=== PATIENT | male | born 1945 | race African-American/Black ===

== ENCOUNTER 2016-07-06 06:24 | Emergency (ER) | payer MEDICARE, BC ==
[~2016-07-06] VITALS: Ht 180.3 cm; Wt 104.4 kg
[~2016-07-06 06:24] MED LIST: ACTOS45 MG OR; ALDACTONE25 MG PO; ASPIR-8181 MG OR; ASPIRIN LOW DOS81 M2 PO; BUSPIRONE30 MG OR; CADUET5 MG/40 MG PO; CIPROFLOXACN500 MG PO; CYMBALTA30 MG PO; DEXILANT60 MG PO; FISH OIL1000 MG PO; FLOMAX0.4 M1 PO; FLOMAX0.4 MG OR; FUROSEMIDE40 MG PO; GLIPIZIDE10 MG PO; GLUCOTROL XL10 MG PO; LANTUS100 MG/ML SC; LEVITRA20 MG OR; LEXAPRO10 MG OR; LORTAB 5/3255 MG PO; METAXALONE OR; NOVOLOG100 IU/1 M SC; PRECOSE PO; PRECOSE25 MG PO; RISPERDAL1 MG OR; RISPERIDONE1 MG PO; TUMS500 MG PO; ULTRAM50 MG OR; VITAMIN D1000 UNIT PO; XALATAN0.005 % OU; ZPAK PO
[2016-07-06] MEDS ORDERED: GLIPIZIDE ER5 MG PO (06:44)
[2016-07-06] MEDS ORDERED: FLOMAX0.4 M1 PO (06:44)
[2016-07-06] MEDS ORDERED: PRECOSE25 MG PO (06:45)
[2016-07-06] MEDS ORDERED: AMLODIPINE2.5 MG PO (06:48)
[2016-07-06] MEDS ORDERED: AMLODIPINE5 MG PO (06:49)
[2016-07-06 07:37] LABS: HEMATOCRIT 41.1 % (39.0-50.0); HEMOGLOBIN 13.5 g/dl (14.0-18.0); IMMATURE GRANULOCYTES 0.4 % (0.0-1.0); MEAN CELL VOLUME 86.5 fL CALC (80.0-100.0); MEAN CORPUSCULAR HGB 28.4 pG CALC (26.0-32.0); MEAN CORPUSCULAR HGB CONC 32.8 g/L CALC (32.0-36.0); NEUT# 3.46 thou/uL (1.82-7.42); RED BLOOD COUNT 4.75 mill/uL (4.70-6.10); RED CELL DISTRI WIDTH 14.2 % (11.5-15.5)
[2016-07-06 07:54] LABS: ALBUMIN 4.2 g/dL (3.2-5.0); ALKALINE PHOSPHATASE 71 u/l (38-126); ANION GAP 12 (6-22 (CALC)); BILIRUBIN, TOTAL 0.7 mg/dL (0.0-1.4); BUN 30 mg/dL (8-23); BUN/CREATININE RATIO 21 (12-20 (CALC)); CALCIUM 9.7 mg/dL (8.4-10.2); CARBON DIOXIDE 30 mmol/l (22-30); CHLORIDE 101 mmol/l (95-108); CREATININE 1.4 mg/dL (0.7-1.3); GFR 50 ML/MIN (>=60 (CALC)); GFR FOR AFR.AMER. 60 ML/MIN (>=60 (CALC)); GLUCOSE 96 mg/dL (82-115); POTASSIUM 4.6 mmol/l (3.5-5.1); SGOT/AST 48 u/l (19-48); SGPT/ALT 50 u/l (11-66); SODIUM 137 mmol/l (137-146); TOTAL PROTEIN 7.7 g/dL (6.3-8.2)
[2016-07-06 08:06] LABS: MYOGLOBIN 118 ng/mL (0 - 121)
[2016-07-06] MEDS ORDERED: FLEXERIL PO (08:24)
[2016-07-06] MEDS ORDERED: EC-NAPROSYN500 MG PO (08:24)
[2016-07-06 08:30] VITALS: BP 150/68
== END 2016-07-06 08:35 | disposition home or self-care (01) ==
LOC: ED 06:24
PROVIDERS: Emergency Medicine
DX: R07.89 Other chest pain (principal); I10 Essential (primary) hypertension; E11.9 Type 2 diabetes mellitus without complications; E78.5 Hyperlipidemia, unspecified

== ENCOUNTER 2016-12-17 08:13 | Emergency (ER) | payer MEDICARE, BC ==
[~2016-12-17] VITALS: Ht 180.3 cm; Wt 105.0 kg
[~2016-12-17 08:13] MED LIST changes: +AMLODIPINE2.5 MG PO; +AMLODIPINE5 MG PO; +EC-NAPROSYN500 MG PO; +FLEXERIL PO; +GLIPIZIDE ER5 MG PO
[2016-12-17] MEDS ORDERED: XALATAN 0.005%2.5 ML OU (08:31)
[2016-12-17] MEDS ORDERED: ALPHA LIPOIC A200 MG PO (08:34)
[2016-12-17] MEDS ORDERED: L-ARGININE500 M2 PO (08:34)
[2016-12-17] MEDS ORDERED: COQ-1030 M1 PO (08:35)
[2016-12-17] MEDS ORDERED: FLEXERIL5 MG PO (08:36)
[2016-12-17] MEDS ORDERED: TRAMADOL HCL50 MG PO (08:38)
[2016-12-17] MEDS ORDERED: DOXYCYC MONO100 M1 PO (08:44)
[2016-12-17 08:50] VITALS: BP 171/79
== END 2016-12-17 08:55 | disposition home or self-care (01) ==
LOC: ED 08:13
DX: E11.621 Type 2 diabetes mellitus with foot ulcer (principal); L97.519 Non-pressure chronic ulcer of other part of right foot with unspecified severity; I10 Essential (primary) hypertension; E78.5 Hyperlipidemia, unspecified

== ENCOUNTER 2017-01-29 12:06 | Emergency (ER) | payer MEDICARE, BC ==
[~2017-01-29] VITALS: Ht 180.3 cm; Wt 107.0 kg
[~2017-01-29 12:06] MED LIST changes: +ALPHA LIPOIC A200 MG PO; +COQ-1030 M1 PO; +DOXYCYC MONO100 M1 PO; +FLEXERIL5 MG PO; +L-ARGININE500 M2 PO; +TRAMADOL HCL50 MG PO; +XALATAN 0.005%2.5 ML OU
[2017-01-29 13:26] VITALS: BP 127/68
== END 2017-01-29 13:37 | disposition home or self-care (01) ==
LOC: ED 12:06
DX: S39.012A Strain of muscle, fascia and tendon of lower back, initial encounter (principal); I10 Essential (primary) hypertension; E11.9 Type 2 diabetes mellitus without complications; E78.5 Hyperlipidemia, unspecified; F41.9 Anxiety disorder, unspecified; X50.0XXA Overexertion from strenuous movement or load, initial encounter; Y93.89 Activity, other specified

== ENCOUNTER 2017-03-08 13:42 | Emergency (ER) | payer MEDICARE, BC | END 2017-03-08 13:55 | disposition left against medical advice (07) | LOC: ED 13:42 → LWOBS 13:55 | DX: Z91.19 Patient's noncompliance with other medical treatment and regimen (principal) ==

== ENCOUNTER 2017-04-28 15:44 | Emergency (ER) | payer MEDICARE, BC ==
[~2017-04-28] VITALS: Ht 180.3 cm; Wt 102.0 kg
[2017-04-28] MEDS ORDERED: AMLODIPINE10 MG PO (16:12)
[2017-04-28 17:45] LABS: INFLUENZA A NONE DETECTED (NONE DETECT); INFLUENZA B NONE DETECTED (NONE DETECT)
[2017-04-28 18:01] LABS: HEMOGLOBIN 12.8 g/dl (14.0-18.0); IMMATURE GRANULOCYTES 0.4 % (0.0-1.0); MEAN CELL VOLUME 87.5 fL CALC (80.0-100.0); NEUT# 5.49 thou/uL (1.82-7.42); RED BLOOD COUNT 4.57 mill/uL (4.70-6.10); RED CELL DISTRI WIDTH 14.5 % (11.5-15.5)
[2017-04-28 18:16] LABS: ALBUMIN 4.3 g/dL (3.2-5.0); ALKALINE PHOSPHATASE 98 u/l (38-126); ANION GAP 13 (6-22 (CALC)); BILIRUBIN, TOTAL 0.6 mg/dL (0.0-1.4); BUN 15 mg/dL (8-23); BUN/CREATININE RATIO 15 (12-20 (CALC)); CALCIUM 10.4 mg/dL (8.4-10.2); CARBON DIOXIDE 28 mmol/l (22-30); CHLORIDE 101 mmol/l (95-108); GFR > 60 ML/MIN (>=60 (CALC)); GFR FOR AFR.AMER. > 60 ML/MIN (>=60 (CALC)); GLUCOSE 175 mg/dL (82-115); POTASSIUM 4.8 mmol/l (3.5-5.1); SGOT/AST 37 u/l (19-48); SGPT/ALT 42 u/l (11-66); SODIUM 138 mmol/l (137-146); TOTAL PROTEIN 7.2 g/dL (6.3-8.2)
[2017-04-28] MEDS ORDERED: FLONASE AL50 MCG/ACT (18:24)
[2017-04-28] MEDS ORDERED: ZPAK PO (18:24)
[2017-04-28 18:27] VITALS: BP 138/70
== END 2017-04-28 18:30 | disposition home or self-care (01) ==
LOC: ED 15:44
PROVIDERS: Emergency Medicine
DX: J32.9 Chronic sinusitis, unspecified (principal); R09.81 Nasal congestion; I10 Essential (primary) hypertension; E11.9 Type 2 diabetes mellitus without complications

== ENCOUNTER 2018-04-12 20:16 | Emergency (ER) | payer MEDICARE, BC ==
[~2018-04-12] VITALS: Ht 180.3 cm; Wt 113.0 kg
[~2018-04-12 20:16] MED LIST changes: +AMLODIPINE10 MG PO; +FLONASE AL50 MCG/ACT
[2018-04-12] MEDS ORDERED: NOVOLOG MIX100 U/ML SC (21:04)
[2018-04-12 22:23] VITALS: BP 131/71
== END 2018-04-12 22:25 | disposition home or self-care (01) ==
LOC: ED 20:16
DX: Z03.89 Encounter for observation for other suspected diseases and conditions ruled out (principal); E11.9 Type 2 diabetes mellitus without complications; I10 Essential (primary) hypertension; Z79.4 Long term (current) use of insulin

== ENCOUNTER 2018-08-22 00:59 | Emergency (ER) | payer MEDICARE, BC ==
[~2018-08-22] VITALS: Ht 180.3 cm; Wt 116.0 kg
[~2018-08-22 00:59] MED LIST changes: +LIPITOR80 M1 PO; +LOSARTAN POT100 MG PO; +NOVOLOG MIX100 U/ML SC
[2018-08-22] MEDS ORDERED: FLEXERIL PO (02:06)
[2018-08-22 02:27] VITALS: BP 117/73
== END 2018-08-22 02:32 | disposition home or self-care (01) ==
LOC: ED 00:59
DX: S43.401A Unspecified sprain of right shoulder joint, initial encounter (principal); I10 Essential (primary) hypertension; E11.9 Type 2 diabetes mellitus without complications; X50.0XXA Overexertion from strenuous movement or load, initial encounter; Y93.89 Activity, other specified; Y92.009 Unspecified place in unspecified non-institutional (private) residence as the place of occurrence of the external cause

== ENCOUNTER 2019-02-17 10:27 | Emergency (ER) | payer MEDICARE, BC ==
[~2019-02-17] VITALS: Ht 180.3 cm; Wt 118.0 kg
[2019-02-17] MEDS ORDERED: ORPHENADRINE100 MG PO (11:58)
[2019-02-17 12:03] VITALS: BP 143/63
== END 2019-02-17 12:07 | disposition home or self-care (01) ==
LOC: ED 10:27
DX: S39.012A Strain of muscle, fascia and tendon of lower back, initial encounter (principal); X50.9XXA Other and unspecified overexertion or strenuous movements or postures, initial encounter; M54.5 Low back pain

== ENCOUNTER 2019-06-19 | Emergency (ER) | payer MEDICARE, BC ==
[~2019-06-19] MED LIST changes: +ORPHENADRINE100 MG PO
[2019-06-19] MEDS ORDERED: XALATAN 0.005%2.5 ML OP (19:15)
[2019-06-19] MEDS ORDERED: TIMOLOL OP (19:16)
[2019-06-19] MEDS ORDERED: BRIMONIDINE0.2 % OP (19:16)
[2019-06-19] MEDS ORDERED: METAMUCIL FIBE51.7 % (19:17)
[2019-06-19] MEDS ORDERED: CYMBALTA30 MG PO (19:17)
[2019-06-19] MEDS ORDERED: VITAMIN D31000 UNI1 PO (19:18)
[2019-06-19] MEDS ORDERED: HYDRALAZINE10 M2 PO (19:18)
[2019-06-19] MEDS ORDERED: LANTUS100 UNIT/M (19:19)
[2019-06-19] MEDS ORDERED: METOPROL TAR25 MG PO (19:19)
[2019-06-19 19:26] LABS: HEMATOCRIT 41.4 % (39.0-50.0); HEMOGLOBIN 12.8 g/dl (14.0-18.0); IMMATURE GRANULOCYTES 0.2 % (0.0-5.0); MEAN CELL VOLUME 89.4 fL CALC (80.0-100.0); MEAN CORPUSCULAR HGB 27.6 pG CALC (26.0-32.0); MEAN CORPUSCULAR HGB CONC 30.9 g/dL CAL (32.0-36.0); NEUT# 2.31 thou/uL (1.82-7.42); RED BLOOD COUNT 4.63 mill/uL (4.70-6.10); RED CELL DISTRI WIDTH 14.3 % (11.5-15.5)
[2019-06-19 19:46] LABS: ALBUMIN 4.2 g/dL (3.2-5.0); ALKALINE PHOSPHATASE 76 u/l (38-126); AMYLASE 150 u/l (30-110); BILIRUBIN, TOTAL 0.8 mg/dL (0.0-1.4); BUN 27 mg/dL (8-23); BUN/CREATININE RATIO 20 (12-20 (CALC)); CHLORIDE 101 mmol/l (95-108); CREATININE 1.4 mg/dL (0.7-1.3); GFR 50 ML/MIN (>=60 (CALC)); GFR FOR AFR.AMER. 60 ML/MIN (>=60 (CALC)); LIPASE 346 u/l (23-300); POTASSIUM 4.5 mmol/l (3.5-5.1); SGOT/AST 45 u/l (19-48); SODIUM 136 mmol/l (137-146); TOTAL PROTEIN 7.6 g/dL (6.3-8.2)
[2019-06-19 19:51] LABS: ANION GAP 9 (6-22 (CALC)); CARBON DIOXIDE 31 mmol/l (22-30)
[2019-06-19 20:28] LABS: URINE BILIRUBIN - DIPSTICK NEGATIVE (NEGATIVE); URINE BLOOD DIPSTICK NEGATIVE (NEGATIVE); URINE COLOR YELLOW; URINE GLUCOSE - DIPSTICK 100 mg/dL (NEGATIVE); URINE KETONE NEGATIVE (NEGATIVE); URINE LEUK ESTERASE NEGATIVE (NEGATIVE); URINE NITRITE - DIPSTICK NEGATIVE (Negative); URINE PH 6.5 (4.5-8.0); URINE PROTEIN - DIPSTICK TRACE mg/dL (NEG-TRACE); URINE UROBILINOGEN - DIPSTICK 0.2 E.U./dL (0.2)
[2019-06-19] MEDS ORDERED: ONDANSETRON4 MG PO (22:04)
[2019-06-19] MEDS ORDERED: PROTONIX40 M2 PO (22:04)
[2019-06-19] MEDS ORDERED: HYDROCO/APAP1 TA9 PO (22:04)
== END 2019-06-19 22:32 | disposition home or self-care (01) ==
DX: R10.13 Epigastric pain (principal); K80.20 Calculus of gallbladder without cholecystitis without obstruction; E11.9 Type 2 diabetes mellitus without complications; I10 Essential (primary) hypertension; Z79.4 Long term (current) use of insulin
CPT/HCPCS: Q9967; S0164

== ENCOUNTER 2019-09-18 18:48 | Emergency (ER) | payer MEDICARE, BC ==
[~2019-09-18] VITALS: Ht 180.3 cm; Wt 111.0 kg
[~2019-09-18 18:48] MED LIST changes: +BRIMONIDINE0.2 % OP; +HYDRALAZINE10 M2 PO; +HYDROCO/APAP1 TA9 PO; +LANTUS100 UNIT/M; +METAMUCIL FIBE51.7 %; +METOPROL TAR25 MG PO; +ONDANSETRON4 MG PO; +PROTONIX40 M2 PO; +TIMOLOL OP; +VITAMIN D31000 UNI1 PO; +XALATAN 0.005%2.5 ML OP
[2019-09-18] MEDS ORDERED: TRAMADOL HCL50 MG PO (21:11)
[2019-09-18] MEDS ORDERED: FLEXERIL5 MG PO (21:11)
[2019-09-18] MEDS ORDERED: VOLTAREN - GENE75 MG PO (21:11)
[2019-09-18 21:26] VITALS: BP 138/69
== END 2019-09-18 21:59 | disposition home or self-care (01) ==
LOC: ED 18:48
DX: M54.12 Radiculopathy, cervical region (principal); E11.9 Type 2 diabetes mellitus without complications; I10 Essential (primary) hypertension; Z79.4 Long term (current) use of insulin

== ENCOUNTER 2020-07-29 06:17 | Emergency (ER) | payer MEDICARE, BC ==
[~2020-07-29 06:17] MED LIST changes: -METAMUCIL FIBE51.7 %; +METAMUCIL FIBE51.7 % PO; +VOLTAREN - GENE75 MG PO
[2020-07-29] MEDS ORDERED: NORVASC5 M1 PO (06:44)
[2020-07-29] MEDS ORDERED: ALPHA LIPOIC A200 MG PO (06:46)
[2020-07-29] MEDS ORDERED: CYMBALTA30 MG PO (06:54)
[2020-07-29] MEDS ORDERED: LOSARTAN POTASS50 MG PO (06:54)
[2020-07-29 08:48] VITALS: BP 138/65
[2020-07-29] MEDS ORDERED: HYDROCO/APAP1 TA9 PO (08:52)
== END 2020-07-29 08:59 | disposition home or self-care (01) ==
LOC: ED 06:17
DX: S16.1XXA Strain of muscle, fascia and tendon at neck level, initial encounter (principal); S29.012A Strain of muscle and tendon of back wall of thorax, initial encounter; S39.012A Strain of muscle, fascia and tendon of lower back, initial encounter; S00.03XA Contusion of scalp, initial encounter; S30.0XXA Contusion of lower back and pelvis, initial encounter; S06.9X1A Unspecified intracranial injury with loss of consciousness of 30 minutes or less, initial encounter; E11.9 Type 2 diabetes mellitus without complications; I10 Essential (primary) hypertension; E78.5 Hyperlipidemia, unspecified; W07.XXXA Fall from chair, initial encounter; Y92.009 Unspecified place in unspecified non-institutional (private) residence as the place of occurrence of the external cause; Z79.4 Long term (current) use of insulin

== ENCOUNTER 2020-09-01 14:39 | Emergency (ER) | payer MEDICARE, BC ==
[~2020-09-01] VITALS: Ht 180.3 cm; Wt 114.5 kg
[~2020-09-01 14:39] MED LIST changes: +LOSARTAN POTASS50 MG PO; +NORVASC5 M1 PO
[2020-09-01 15:32] VITALS: BP 150/70
== END 2020-09-01 15:49 | disposition short-term general hospital (02) ==
LOC: ED 14:39
DX: S00.83XA Contusion of other part of head, initial encounter (principal); E11.9 Type 2 diabetes mellitus without complications; E78.5 Hyperlipidemia, unspecified; I10 Essential (primary) hypertension; Z79.84 Long term (current) use of oral hypoglycemic drugs; Z79.82 Long term (current) use of aspirin; W01.0XXA Fall on same level from slipping, tripping and stumbling without subsequent striking against object, initial encounter

== ENCOUNTER 2020-10-25 20:24 | Emergency (ER) | payer MEDICARE, BC ==
[~2020-10-25] VITALS: Ht 180.3 cm; Wt 122.0 kg
[2020-10-25 23:47] VITALS: BP 154/87
== END 2020-10-25 23:47 | disposition home or self-care (01) ==
LOC: ED 20:24
DX: J02.9 Acute pharyngitis, unspecified (principal); E11.9 Type 2 diabetes mellitus without complications; I10 Essential (primary) hypertension; E78.5 Hyperlipidemia, unspecified; Z87.442 Personal history of urinary calculi; Z79.4 Long term (current) use of insulin; Z20.822 Contact with and (suspected) exposure to COVID-19

== ENCOUNTER 2022-10-05 05:40 | Observation (INO) | payer MEDICARE, BC ==
[~2022-10-05] VITALS: Ht 177.8 cm; Wt 112.6 kg
[2022-10-05] VITALS (8 sets, daily range): BP systolic 134–173; BP diastolic 59–96
[2022-10-05 06:24] LABS: BASO% 0.2 % (0-3); EOS% 1.5 % (0-8); HEMATOCRIT 41.5 % (39.0-50.0); HEMOGLOBIN 12.9 g/dl (14.0-18.0); IMMATURE GRANULOCYTES 0.2 % (0.0-5.0); LYMPH% 29.6 % (15-41); MEAN CELL VOLUME 89.4 fL CALC (80.0-100.0); MEAN CORPUSCULAR HGB 27.8 pG CALC (26.0-32.0); MEAN CORPUSCULAR HGB CONC 31.1 g/dL CAL (32.0-36.0); MONO% 15.3 % (2-13); NEUT# 2.92 thou/uL (1.82-7.42); NEUT% 53.2 % (42-76); RED BLOOD COUNT 4.64 mill/uL (4.70-6.10); RED CELL DISTRI WIDTH 13.8 % (11.5-15.5)
[2022-10-05 06:27] LABS: ALBUMIN 3.9 g/dL (3.2-5.0); ALKALINE PHOSPHATASE 84 u/l (38-126); ANION GAP 9 (6-22 (CALC)); BILIRUBIN, TOTAL 0.9 mg/dL (0.2-1.3); BUN 24 mg/dL (8-23); BUN/CREATININE RATIO 16 (12-20 (CALC)); CARBON DIOXIDE 26 mmol/l (22-30); CHLORIDE 103 mmol/l (95-108); CREATININE 1.5 mg/dL (0.7-1.3); GFR FOR AFR.AMER. 55 ML/MIN (>=60 (CALC)); GFR OTHER RACES 45 ML/MIN (>=60 (CALC)); POTASSIUM 4.2 mmol/l (3.5-5.1); SGOT/AST 35 u/l (19-48); SODIUM 134 mmol/l (137-146); TOTAL PROTEIN 7.3 g/dL (6.3-8.2)
[2022-10-05] MEDS ORDERED: NITROSTAT0.4 MG SL (11:25)
[2022-10-05] MEDS ORDERED: SEROQUEL25 MG PO (11:27)
[2022-10-05] MEDS ORDERED: BUSPAR5 MG PO (11:30)
[2022-10-06] VITALS: BP 134/64
[2022-10-06 01:39] LABS: URINE BILIRUBIN - DIPSTICK NEGATIVE (NEGATIVE); URINE BLOOD DIPSTICK TRACE-LYSED (NEGATIVE); URINE COLOR YELLOW; URINE GLUCOSE - DIPSTICK 250 mg/dL (NEGATIVE); URINE KETONE NEGATIVE (NEGATIVE); URINE PROTEIN - DIPSTICK TRACE mg/dL (NEG-TRACE); URINE SPECIFIC GRAVITY <=1.005; URINE UROBILINOGEN - DIPSTICK 0.2 E.U./dL (0.2)
[2022-10-06 01:43] LABS: URINE LEUK ESTERASE SMALL (NEGATIVE); URINE NITRITE - DIPSTICK POSITIVE (Negative)
[2022-10-06 01:53] LABS: URINE BACTERIA FEW hpf; URINE SQUAMOUS EPITHELIAL CELL FEW EPI/hpf (0-FEW); URINE WBC 20-50 WBC/hpf (0-5)
[2022-10-06 04:00] VITALS: BP 158/76
[2022-10-06 04:19] VITALS: BP 158/76
[2022-10-06 05:38] LABS: BASO% 0.2 % (0-3); EOS% 1.5 % (0-8); HEMATOCRIT 38.4 % (39.0-50.0); HEMOGLOBIN 12.2 g/dl (14.0-18.0); IMMATURE GRANULOCYTES 0.2 % (0.0-5.0); MEAN CELL VOLUME 88.1 fL CALC (80.0-100.0); MEAN CORPUSCULAR HGB CONC 31.8 g/dL CAL (32.0-36.0); MONO% 13.8 % (2-13); NEUT# 2.97 thou/uL (1.82-7.42); NEUT% 62.3 % (42-76); RED BLOOD COUNT 4.36 mill/uL (4.70-6.10); RED CELL DISTRI WIDTH 13.5 % (11.5-15.5)
[2022-10-06 06:08] LABS: ALBUMIN 3.3 g/dL (3.2-5.0); ALKALINE PHOSPHATASE 73 u/l (38-126); ANION GAP 8 (6-22 (CALC)); BILIRUBIN, TOTAL 1.1 mg/dL (0.2-1.3); BUN 18 mg/dL (8-23); BUN/CREATININE RATIO 14 (12-20 (CALC)); CARBON DIOXIDE 23 mmol/l (22-30); CHLORIDE 105 mmol/l (95-108); CREATININE 1.3 mg/dL (0.7-1.3); GFR FOR AFR.AMER. > 60 ML/MIN (>=60 (CALC)); GFR OTHER RACES 53 ML/MIN (>=60 (CALC)); MAGNESIUM 1.7 mg/dL (1.6-2.3); POTASSIUM 4.5 mmol/l (3.5-5.1); SGOT/AST 32 u/l (19-48); SODIUM 132 mmol/l (137-146); TOTAL PROTEIN 5.9 g/dL (6.3-8.2)
[2022-10-06 07:20] VITALS: BP 149/74
[2022-10-06 10:30] VITALS: BP 180/68
[2022-10-06 10:57] VITALS: BP 147/69
== END 2022-10-06 11:34 | disposition home or self-care (01) ==
LOC: ED 05:40 → MS2 08:36
PROVIDERS: Emergency Medicine; Nurse Practitioner Family; ADMIT Internal Medicine; ATTEND Internal Medicine
DX: R07.9 Chest pain, unspecified (principal); F41.9 Anxiety disorder, unspecified; I10 Essential (primary) hypertension; E11.9 Type 2 diabetes mellitus without complications; E78.5 Hyperlipidemia, unspecified; I25.10 Atherosclerotic heart disease of native coronary artery without angina pectoris; I44.0 Atrioventricular block, first degree; Z79.4 Long term (current) use of insulin; T38.3X6A Underdosing of insulin and oral hypoglycemic [antidiabetic] drugs, initial encounter; T46.5X6A Underdosing of other antihypertensive drugs, initial encounter; Z91.128 Patient's intentional underdosing of medication regimen for other reason; Z79.84 Long term (current) use of oral hypoglycemic drugs; Z73.3 Stress, not elsewhere classified
CPT/HCPCS: J1650

== ENCOUNTER 2023-05-04 13:14 | Emergency (ER) | payer MEDICARE, BC ==
[~2023-05-04] VITALS: Ht 177.8 cm; Wt 112.0 kg
[~2023-05-04 13:14] MED LIST changes: +BUSPAR5 MG PO; +NITROSTAT0.4 MG SL; +SEROQUEL25 MG PO
[2023-05-04 15:57] VITALS: BP 165/95
[2023-05-04 17:18] VITALS: BP 156/75
[2023-05-04 17:31] VITALS: BP 167/75
[2023-05-04 18:01] VITALS: BP 154/75
[2023-05-04 18:16] VITALS: BP 154/75
== END 2023-05-04 18:25 | disposition home or self-care (01) ==
LOC: ED 13:14
DX: M19.012 Primary osteoarthritis, left shoulder (principal); M19.011 Primary osteoarthritis, right shoulder; M47.816 Spondylosis without myelopathy or radiculopathy, lumbar region; M79.672 Pain in left foot; I10 Essential (primary) hypertension; E11.9 Type 2 diabetes mellitus without complications; E78.5 Hyperlipidemia, unspecified; Z87.442 Personal history of urinary calculi; Z79.84 Long term (current) use of oral hypoglycemic drugs; Z79.4 Long term (current) use of insulin; Z20.822 Contact with and (suspected) exposure to COVID-19

== ENCOUNTER 2023-09-23 09:47 | Observation (INO) | payer MEDICARE, BC ==
[~2023-09-23] VITALS: Ht 177.8 cm; Wt 104.0 kg
[2023-09-23] VITALS (18 sets, daily range): BP systolic 121–167; BP diastolic 60–95
--- NOTE | 2023-09-23 10:10 | NUR ---
PT TO ER ROOM 14 VIA EMS. FAMILY AT SIDE. PT REPORTS NO CURRENT CHEST PAIN.
[2023-09-23] MEDS ORDERED: ASPIRIN 81 MG/TAB PO ONE (10:25)
[2023-09-23 10:40] LABS: BASO% 0.2 % (0-3); EOS% 1.1 % (0-8); HEMATOCRIT 38.6 % (39.0-50.0); HEMOGLOBIN 12.4 g/dl (14.0-18.0); IMMATURE GRANULOCYTES 0.2 % (0.0-5.0); LYMPH% 32.6 % (15-41); MEAN CELL VOLUME 88.9 fL CALC (80.0-100.0); MEAN CORPUSCULAR HGB 28.6 pG CALC (26.0-32.0); MEAN CORPUSCULAR HGB CONC 32.1 g/dL CAL (32.0-36.0); MONO% 17.2 % (2-13); NEUT# 2.27 thou/uL (1.82-7.42); NEUT% 48.7 % (42-76); RED BLOOD COUNT 4.34 mill/uL (4.70-6.10); RED CELL DISTRI WIDTH 13.4 % (11.5-15.5)
[2023-09-23 11:06] LABS: PROTHROMBIN TIME 9.7 SECONDS (9.0-12.5)
[2023-09-23 11:07] LABS: ALBUMIN 4.1 g/dL (3.2-5.0); ALKALINE PHOSPHATASE 68 u/l (38-126); ANION GAP 6 (6-22 (CALC)); BUN 28 mg/dL (8-23); BUN/CREATININE RATIO 16 (12-20 (CALC)); CARBON DIOXIDE 28 mmol/l (22-30); CHLORIDE 104 mmol/l (95-108); CREATININE 1.8 mg/dL (0.7-1.3); ESTIMATED GFR 38 ML/MIN (>=90 (CALC)); POTASSIUM 3.5 mmol/l (3.5-5.1); SGOT/AST 45 u/l (19-48); SODIUM 135 mmol/l (137-146); TOTAL PROTEIN 7.3 g/dL (6.3-8.2)
[2023-09-23 11:10] LABS: D-DIMER 0.54 mg/L (0.19-0.60)
--- NOTE | 2023-09-23 11:15 | NUR ---
PATIENT IS RESTING IN BED. XRAY COMPLETED. HE DENIES ANY PAIN OR DISCOMFORT. pT SON WAS WITH HIM AND WENT HOME. CALL LIGHT WITHIN REACH.
--- NOTE | 2023-09-23 12:58 | NUR ---
78 YEAR OLD MALE RESTING IN BED. ALERT AND ORIENTED. PT DENIES ANY CHEST PAIN OR DISCOMFORT. CALL LIGHT WITHIN REACH.
[2023-09-23] MEDS ORDERED: ACETAMINOPHEN 325 MG/TAB PO PRN (13:35)
[2023-09-23] MEDS ORDERED: MORPHINE SULFATE 4 MG/ML VIAL IV PRN (13:35)
[2023-09-23] MEDS ORDERED: MAGNESIUM HYDROXIDE 30 ML UDC PO PRN (13:35)
[2023-09-23] MEDS ORDERED: NITROGLYCERIN 0.4 MG/TAB SL PRN (13:35)
[2023-09-23] MEDS ORDERED: hydrALAZINE HCL 20 MG/ML VIAL(1 ML) IV PRN (13:40)
[2023-09-23] MEDS ORDERED: QUEtiapine FUMERATE 25 MG/TAB PO PRN (13:40)
--- NOTE | 2023-09-23 13:46 | NUR ---
PT IS RESTING IN BED WITH EYES CLOSED. nO DISTRESS NOTED. RESPIRATORY RATE EVEN AND UNLABORDED. CALL LIGHT WITHIN REACH. WARM BLANKET PLACED ON PATEINT.
[2023-09-23] MEDS ORDERED: Heparin SODIUM (Porcine) 5,000 UNITS/ML SDV SC SCH (14:00)
--- NOTE | 2023-09-23 14:03 | NUR ---
ADMITTING PHYSICIAN AT BEDSIDE OF PATIENT.
--- NOTE | 2023-09-23 14:12 | NUR ---
PATIENT MADE AWARE OF ROOM OF 277. PT DENIES ANY CHEST PAIN, SOB, PALPITATIONS, OR ANY FEELINGS OF MALAISE AT THIS TIME. CARDIAC DIET WAS ORDERED. PATIENT IS EATING SUGAR FREE PUDDING TOLERATING WELL.
--- NOTE | 2023-09-23 14:41 | NUR ---
REPORT RECEIVED FROM MAYELA RAMOS
--- NOTE | 2023-09-23 14:44 | NUR ---
PT TRANFERED BY WHEELCHAIR WITH BELONGINGS AND TELE.
--- NOTE | 2023-09-23 14:44 | NUR ---
REPORT GIVEN TO Yong PERSAUD
--- NOTE | 2023-09-23 14:49 | NUR ---
PT ARRIVED TO MED/SURG ROOM 277 VIA WC ACCOMPANIED BY MAYELA RAMOS;PT AMBULATED TO STANDING SCALE AND BEDSIDE WITH A STEADY GAIT. WT AND VS OBTAINED BY REX CHÁVEZ.PT A&O X4, ORIENTED TO ROOM AND CALL LIGHT SYSTEM;PT REPORTS LEFT CHEST PAIN THAT LAST 30-60 MINS PRIOR TO ARRIVAL TO [facility];PT DENIES ANY CURRENT PAIN,PAIN SCALE AND REPORTING EDUCATED;RESPIRATIONS EVEN AND UNLABORED ON RA, CLEAR LUNG SOUNDS;ABDOMEN SOFT ON PALPATION AND ACTIVE IN ALL 4 QUADRANTS,LAST BM 09/22/23;WEAK PEDAL PULSES WITH +2 EDEMA NOTED TO BLE, ENCOURAGED ELEVATION;SKIN INTACT;TELE MONITORING IN PLACE;#20G TO LAC FLUSHED AND PATENT,SITE APPEARS HEALTHY;ACCUCHECK 139, SNACK PROVIDED;ALLERGY BAND APPLIED TO LEFT ARM;PT DENIES ANY ADDITIONAL NEEDS AND IS ENCOURAGED TO CALL FOR ASSISTANCE IF NEEDED;FALL PRECAUTIONS IN PLACE WITH BED IN THE LOWEST POSITION AND CALL LIGHT IN REACH;FREQUENT ROUNDS MADE.
--- NOTE | 2023-09-23 15:37 | NUR ---
BOOKED A CARDIOLOGY CONSULT WITH DR SANCHEZ VIA THE [email or web address] AT 1537 HRS.
--- NOTE | 2023-09-23 15:59 | NUR ---
CARDIOLOGY CONSULT COMPLETED AT THIS TIME.
--- NOTE | 2023-09-23 16:25 | NUR ---
PT RESTING IN SEMI FOWLERS POSITION WATCHING TV;RESPIRATIONS EVEN AND UNLABORED ON RA;PT DENIES ANY CURRENT PAIN OR NEEDS;TELE MONITORING IN PLACE;IV SITE PATENT;ENCOURAGED TO CALL FOR ASSISTANCE IF NEEDED;CALL LIGHT IN REACH;FREQUENT ROUNDS MADE.
[2023-09-23] MEDS ORDERED: INSULIN LISPRO 100 UNITS/ML ML SC SCH (17:00)
--- NOTE | 2023-09-23 20:00 | NUR ---
PT SITTING ON SIDE OF BED. WHEN NURSE ASKED PT IF HE WAS HAVING CP PT STATED YES THEN HE SAID NO THAT IT WAS SLIGHT ANXITY NO CP. NURSE OFFERED NITRO BUT PT REFUSED. PT ASKED NURSE WHAT THE BOX THAT WAS IN HIS GOWN WAS FOR NURSE INFORMED PT THAT IT WAS A HEART MONITOR TO MONITOR HIS HEART RHYTHM. PT INFORMED PT THAT IF HE HAD CP TO LET HER KNOW SO THAT SHE COULD PROVIDE HIM WITH MEDICATION PT STATED UNDERSTANDING. BLE EDEMA +2 SKIN INTACT. VS WNL ON RA SR 67. CALL LIGHT WITHIN REACH. PLAN OF CARE ONGOING.
[2023-09-23] MEDS ORDERED: INSULIN DETEMIR 100 UNITS/ML SC SCH (21:00)
[2023-09-23] MEDS ORDERED: ATORVASTATIN CALCIUM 40 MG/TAB PO SCH (21:00)
[2023-09-23] MEDS ORDERED: METOPROLOL TARTRATE 25 MG/TAB PO SCH (21:00)
[2023-09-23] MEDS ORDERED: TIMOLOL MALEATE 0.5% OU SCH (21:00)
[2023-09-23] MEDS ORDERED: busPIRone HCL 5 MG/TAB PO SCH (21:00)
--- NOTE | 2023-09-24 | NUR ---
PT SITTING IN CHAIR NO DISTRESS NOTED.
--- NOTE | 2023-09-24 02:54 | NUR ---
PT STATED NOT FEELING WELL DIAPHORETIC VS WNL. BG CHECKED IT WAS 52 CASING BUILDER PROVIDED SNACKS THEN RECHECKED BG 30MINUTES LATER BG WAS 153. PT STATED FEELING "MUCH MAUREEN" AND WENT BACK TO SLEEP.
--- NOTE | 2023-09-24 04:07 | NUR ---
PT RESTING NO DISTRESS NOTED ON EXAM. CALL LIGHT WITHIN REACH. PLAN OF CARE ONGOING.
[2023-09-24 04:12] VITALS: BP 149/68
[2023-09-24 05:51] LABS: BASO% 0.2 % (0-3); EOS% 0.4 % (0-8); HEMATOCRIT 41.8 % (39.0-50.0); HEMOGLOBIN 13.3 g/dl (14.0-18.0); IMMATURE GRANULOCYTES 0.2 % (0.0-5.0); LYMPH% 16.9 % (15-41); MEAN CELL VOLUME 88.7 fL CALC (80.0-100.0); MEAN CORPUSCULAR HGB 28.2 pG CALC (26.0-32.0); MEAN CORPUSCULAR HGB CONC 31.8 g/dL CAL (32.0-36.0); MONO% 8.8 % (2-13); NEUT# 3.75 thou/uL (1.82-7.42); NEUT% 73.5 % (42-76); RED BLOOD COUNT 4.71 mill/uL (4.70-6.10); RED CELL DISTRI WIDTH 13.5 % (11.5-15.5)
[2023-09-24 06:05] LABS: ALBUMIN 3.8 g/dL (3.2-5.0); BILIRUBIN, TOTAL 1.2 mg/dL (0.2-1.3); CREATININE 1.6 mg/dL (0.7-1.3); POTASSIUM 3.9 mmol/l (3.5-5.1); TOTAL PROTEIN 6.8 g/dL (6.3-8.2)
[2023-09-24 06:26] LABS: CHOLESTEROL HDL RATIO 1.7 (<4.4 (CALC))
[2023-09-24] MEDS ORDERED: LIPITOR80 M1 PO (07:24)
[2023-09-24] MEDS ORDERED: NITROSTAT0.4 MG SL (07:25)
[2023-09-24] MEDS ORDERED: LOSARTAN POTASS50 MG PO (07:25)
[2023-09-24] MEDS ORDERED: ALDACTONE25 MG PO (07:26)
[2023-09-24] MEDS ORDERED: ASPIRIN81 MG PO (07:27)
[2023-09-24] MEDS ORDERED: TAMSULOSIN HCL 0.4 MG CAP PO SCH (08:00)
--- NOTE | 2023-09-24 08:00 | NUR ---
PT IN BED WITH HOB UP EATING BREAKFAST. PT IS ALERT AND ORIENTED X3. PT HAS NO C/O PAIN AT THIS TIME. PT ON TELE WITH ALL LEADS ATTACHED. PT IV CLEAN AND INTACT.SL. PT AMBULATES TO BATHROOM FOR ALL TOILETING NEEDS. PT HAS CALL LIGHT WITHIN REACH AND SAFETY MEAURES IN PLACE AT THIS TIME.
[2023-09-24 08:06] VITALS: BP 176/79
[2023-09-24 08:17] VITALS: BP 176/79
[2023-09-24] MEDS ORDERED: LOSARTAN Potassium 50 MG/TAB PO SCH (09:00)
[2023-09-24] MEDS ORDERED: SPIRONOLACTONE 25 MG/TAB PO SCH (09:00)
[2023-09-24] MEDS ORDERED: BUMETANIDE 1 MG/TAB PO SCH (09:00)
[2023-09-24] MEDS ORDERED: ASPIRIN 81 MG/TAB PO SCH (09:00)
[2023-09-24] MEDS ORDERED: DULOXETINE HCl 30 MG/CAP PO SCH (09:00)
[2023-09-24 11:34] VITALS: BP 119/56
[2023-09-24 11:48] VITALS: BP 119/56
--- NOTE | 2023-09-24 12:00 | NUR ---
PT IN EBD EATING LUNCH. PT HAS NO C/O PAIN AT THIS TIME. PT HAS CALL LIGHT WIHTIN REACH AND SAFETY MEASURES IN PLACE AT THIS TIME.
--- NOTE | 2023-09-24 13:42 | NUR ---
Discharge instructions given. Patient verbalizes understanding of same. Discharged in stable condition via Ambulatory to Home with family. All belongings sent with pt.
--- NOTE | 2023-09-27 14:15 | NUR ---
Discharge follow up call completed 09/27/23. Patient states he is doing fairly well. He has had a couple of short episodes of chest discomfort that resolveed quickly. Pt has medication prescribed at discharge to take as needed. Pt is scheduled to have lab work on Monday, 09/29. He will schedule a follow up appointment with his PCP following labwork. No needs or concerns verbalized at this time.
== END 2023-09-24 13:27 | disposition home or self-care (01) ==
LOC: ED 09:47 → ED-I 12:46 → ED 12:54 → MS2 12:55
PROVIDERS: Family Medicine; ADMIT Student in an Organized Health Care Education/Training Program; ATTEND Student in an Organized Health Care Education/Training Program
DX: I25.118 Atherosclerotic heart disease of native coronary artery with other forms of angina pectoris (principal); I12.9 Hypertensive chronic kidney disease with stage 1 through stage 4 chronic kidney disease, or unspecified chronic kidney disease; E11.22 Type 2 diabetes mellitus with diabetic chronic kidney disease; N18.32 Chronic kidney disease, stage 3b; E11.59 Type 2 diabetes mellitus with other circulatory complications; E78.5 Hyperlipidemia, unspecified; F41.9 Anxiety disorder, unspecified; F32.A Depression, unspecified; Z79.84 Long term (current) use of oral hypoglycemic drugs; Z79.4 Long term (current) use of insulin; Z87.442 Personal history of urinary calculi; T46.3X6A Underdosing of coronary vasodilators, initial encounter; Z91.128 Patient's intentional underdosing of medication regimen for other reason; Z79.82 Long term (current) use of aspirin

== ENCOUNTER 2023-11-27 10:19 | Emergency (ER) | payer MEDICARE, BC ==
[~2023-11-27] VITALS: Ht 177.8 cm; Wt 104.0 kg
[2023-11-27] VITALS (11 sets, daily range): BP systolic 130–156; BP diastolic 58–78
[~2023-11-27 10:19] MED LIST changes: +ASPIRIN81 MG PO; +ATORVASTATIN CA40 MG PO; +BUMETANIDE1 MG PO; +COZAAR50 MG PO; +LANTUS100 UNIT SC; -LANTUS100 UNIT/M; +VESICARE5 M1 PO
[2023-11-27] MEDS ORDERED: MAGNESIUM SULFATE HEPTAHYDRATE 50 ML IV ONE (10:40)
[2023-11-27] MEDS ORDERED: KETOROLAC TROMETHAMINE 15 MG/ML SDV IV ONE (10:40)
[2023-11-27] MEDS ORDERED: METOCLOPRAMIDE HCL 10 MG/2 ML SDV IV ONE (10:40)
[2023-11-27] MEDS ORDERED: ACETAMINOPHEN 500 MG TAB PO ONE (10:45)
[2023-11-27 10:52] LABS: BASO% 0.2 % (0-3); EOS% 1.1 % (0-8); HEMATOCRIT 39.7 % (39.0-50.0); IMMATURE GRANULOCYTES 0.2 % (0.0-5.0); LYMPH% 27.5 % (15-41); MEAN CELL VOLUME 87.4 fL CALC (80.0-100.0); MEAN CORPUSCULAR HGB 28.6 pG CALC (26.0-32.0); MEAN CORPUSCULAR HGB CONC 32.7 g/dL CAL (32.0-36.0); MONO% 14.3 % (2-13); NEUT# 2.61 thou/uL (1.82-7.42); NEUT% 56.7 % (42-76); RED BLOOD COUNT 4.54 mill/uL (4.70-6.10); RED CELL DISTRI WIDTH 13.7 % (11.5-15.5)
[2023-11-27 11:15] LABS: ALBUMIN 4.2 g/dL (3.2-5.0); BILIRUBIN, TOTAL 0.9 mg/dL (0.2-1.3); CREATININE 1.7 mg/dL (0.7-1.3); POTASSIUM 4.2 mmol/l (3.5-5.1); TOTAL PROTEIN 7.1 g/dL (6.3-8.2)
== END 2023-11-27 12:57 | disposition home or self-care (01) ==
LOC: ED 10:19
PROVIDERS: Family Medicine
DX: R51.9 Headache, unspecified (principal); E78.5 Hyperlipidemia, unspecified; I25.10 Atherosclerotic heart disease of native coronary artery without angina pectoris; Z87.442 Personal history of urinary calculi; I12.9 Hypertensive chronic kidney disease with stage 1 through stage 4 chronic kidney disease, or unspecified chronic kidney disease; E11.22 Type 2 diabetes mellitus with diabetic chronic kidney disease; N18.9 Chronic kidney disease, unspecified; Z79.84 Long term (current) use of oral hypoglycemic drugs; Z79.4 Long term (current) use of insulin; Z20.822 Contact with and (suspected) exposure to COVID-19
CPT/HCPCS: J3475

== ENCOUNTER 2024-03-22 23:17 | Emergency (ER) | payer MEDICARE, BC ==
[~2024-03-22] VITALS: Ht 177.8 cm; Wt 102.0 kg
[2024-03-22 23:29] VITALS: BP 171/74
[2024-03-22 23:31] VITALS: BP 158/64
[2024-03-22 23:45] LABS: BASO% 0.4 % (0-3); EOS% 2.2 % (0-8); HEMATOCRIT 39.9 % (39.0-50.0); HEMOGLOBIN 12.8 g/dl (14.0-18.0); IMMATURE GRANULOCYTES 0.4 % (0.0-5.0); LYMPH% 33.6 % (15-41); MEAN CELL VOLUME 88.1 fL CALC (80.0-100.0); MEAN CORPUSCULAR HGB 28.3 pG CALC (26.0-32.0); MEAN CORPUSCULAR HGB CONC 32.1 g/dL CAL (32.0-36.0); MONO% 19.1 % (2-13); NEUT# 2.42 thou/uL (1.82-7.42); NEUT% 44.3 % (42-76); RED BLOOD COUNT 4.53 mill/uL (4.70-6.10)
[2024-03-22 23:46] VITALS: BP 115/52
[2024-03-22 23:56] LABS: ALBUMIN 4.5 g/dL (3.2-5.0); CREATININE 2.1 mg/dL (0.7-1.3); POTASSIUM 3.6 mmol/l (3.5-5.1); TOTAL PROTEIN 7.8 g/dL (6.3-8.2)
[2024-03-23] VITALS (12 sets, daily range): BP systolic 111–139; BP diastolic 58–70
[2024-03-23 00:08] LABS: INTERNATIONAL NORMALIZED RATIO 0.9 RATIO (0.7-1.3)
[2024-03-23 00:16] LABS: PROTHROMBIN TIME 9.7 SECONDS (9.0-12.5)
[2024-03-23 00:25] LABS: D-DIMER 0.66 mg/L (0.19-0.60)
== END 2024-03-23 03:09 | disposition home or self-care (01) ==
LOC: ED 23:17
PROVIDERS: Family Medicine
DX: R07.89 Other chest pain (principal); E11.22 Type 2 diabetes mellitus with diabetic chronic kidney disease; I12.9 Hypertensive chronic kidney disease with stage 1 through stage 4 chronic kidney disease, or unspecified chronic kidney disease; N18.9 Chronic kidney disease, unspecified; E78.5 Hyperlipidemia, unspecified; Z79.4 Long term (current) use of insulin